=== PATIENT | male | born 1980 | race Caucasian/White ===

== ENCOUNTER 2021-05-08 18:37 | Emergency (ER) | payer SELFPAY ==
[~2021-05-08] VITALS: Ht 180.3 cm; Wt 138.1 kg
--- NOTE | 2021-05-08 19:13 | PHYS DOC ---
Past History Additional Past Medical Histor: HIATAL HERNIA Past Surgical History: Other Additional Past Surgical Histo: CYST REMOVAL FROM LOWER BACK Adult General Chief Complaint Chief Complaint: ABDOMINAL PAIN [facility] Patient is a 40 year old male who presents with epigastric abdominal pain for the last couple days that has gotten a bit worse. He has had on and off problem with the same pain and has been told that he has hiatal hernia in the past. Today he had gone to urgent care and because of nature of his symptoms he was sent to emergency department for further evaluation. Patient denies any nausea or vomiting. His main complaint is feeling pressure in the epigastric area along with burning sensation. He has no chest pain or shortness of breath or cough. He denies any fever, lower abdominal pain, back pain, dysuria, hematuria or diarrhea. He denies drinking alcohol and generally does not take any other medications. Review of Systems Review of Systems Constitutional: Denies fever or chills Eyes: Denies change in visual acuity, redness, or eye pain HENT: Denies nasal congestion or sore throat Respiratory: Denies cough or shortness of breath Cardiovascular: No additional information not addressed in HPI GI: Denies nausea, vomiting, bloody stools or diarrhea. Mainly has epigastric abdominal pain that is on and off. : Denies dysuria or hematuria Musculoskeletal: Denies back pain or joint pain Integument: Denies rash or skin lesions Neurologic: Denies headache, focal weakness or sensory changes Endocrine: Denies polyuria or polydipsia All other systems were reviewed and found to be within normal limits, except as documented in this note. Allergies Allergies Allergies Coded Allergies Type Severity Reaction Last Updated Verified Penicillins Allergy Unknown 05/08/21 Yes lithium Allergy Unknown 05/08/21 Yes Physical Exam Physical Exam Constitutional: Well developed, well nourished, no acute distress, non-toxic appearance. HENT: Normocephalic, atraumatic, bilateral external ears normal, oropharynx moist, no oral exudates, nose normal. Eyes: PERRLA, EOMI, conjunctiva normal, no discharge. Neck: Normal range of motion, no tenderness, supple. Cardiovascular:Heart rate regular rhythm, no murmur Lungs & Thorax: Bilateral breath sounds clear to auscultation Abdomen: Bowel sounds normal, soft, no masses, no pulsatile masses. Mild to moderate epigastric tenderness but no diffuse tenderness noted. Skin: Warm, dry, no erythema, no rash. Back: No tenderness, no CVA tenderness. Extremities: No tenderness, no cyanosis, no clubbing, ROM intact, no edema. Neurologic: Alert and oriented X 3, normal motor function, normal sensory function, no focal deficits noted. Psychologic: Affect normal, judgement normal, mood normal. Current Patient Data Lab Results Laboratory Tests Test 05/08/21 19:15 White Blood Count 11.0 x10^3/uL Red Blood Count 4.97 x10^6/uL Hemoglobin 15.5 g/dL Hematocrit 44.8 % Mean Corpuscular Volume 90 fL Mean Corpuscular Hemoglobin 31 pg Mean Corpuscular Hemoglobin Concent 35 g/dL Red Cell Distribution Width 12.8 % Platelet Count 295 x10^3/uL Neutrophils (%) (Auto) 55 % Lymphocytes (%) (Auto) 34 % Monocytes (%) (Auto) 9 % Eosinophils (%) (Auto) 2 % Basophils (%) (Auto) 1 % Neutrophils # (Auto) 6.0 x10^3uL Lymphocytes # (Auto) 3.7 x10^3/uL Monocytes # (Auto) 1.0 x10^3/uL Eosinophils # (Auto) 0.2 x10^3/uL Basophils # (Auto) 0.1 x10^3/uL Sodium Level 138 mmol/L Potassium Level 3.4 mmol/L Chloride Level 101 mmol/L Carbon Dioxide Level 28 mmol/L Anion Gap 9 Blood Urea Nitrogen 8 mg/dL Creatinine 1.0 mg/dL Estimated GFR (Cockcroft-Gault) 83.6 BUN/Creatinine Ratio 8 Glucose Level 178 mg/dL Calcium Level 9.3 mg/dL Total Bilirubin 1.0 mg/dL Aspartate Amino Transf (AST/SGOT) 28 U/L Alanine Aminotransferase (ALT/SGPT) 90 U/L Alkaline Phosphatase 131 U/L Total Protein 8.2 g/dL Albumin 4.3 g/dL Albumin/Globulin Ratio 1.1 Lipase 93 U/L Current Medications Medications (Trade) Dose Ordered Sig/Joseph Route PRN Reason Start Time Stop Time Status Last Admin Dose Admin Famotidine (Pepcid Vial) 20 mg 1X ONCE IVP 05/08/21 19:15 05/08/21 19:16 DC 05/08/21 19:46 Iohexol (Omnipaque 300 Mg/ml) 75 ml 1X ONCE IV 05/08/21 19:15 05/08/21 19:16 DC 05/08/21 19:32 Info (Do NOT chart on this entry -- for MONITORING) 1 each PRN DAILY PRN MC SEE COMMENTS 05/08/21 19:15 05/10/21 19:14 EKG EKG [] Radiology/Procedures Radiology/Procedures CT scan of the abdomen and pelvis with IV contrast as interpreted by radiologist showed no acute process in the abdomen or pelvis and only had diffuse hepatic steatosis was seen. Large and small bowels were unremarkable along with gallbladder and kidneys. [] Heart Score C/O Chest Pain: No Risk Factors: Risk Factors: DM, Current or recent (<one month) smoker, HTN, HLP, family history of CAD, obesity. Risk Scores: Risk Factors: DM, Current or recent (<one month) smoker, HTN, HLP, family history of CAD, obesity. Course & Med Decision Making Course & Med Decision Making Pertinent Labs and Imaging studies reviewed. (See chart for details) Patient had presented with epigastric pain. Is more burning in sensation but on and off present for a while. His laboratory studies including CBC and electrolytes were unremarkable. It is very slightly elevated liver function test but CT scan showed normal gallbladder and no other acute abnormalities were noted on the CT. He had relief after Pepcid intravenously. I have instructed him to take Prilosec 20 mg [id number] every morning and if that helps him partially or does not help him, he should follow-up with his primary care physician and see other options. He knows that if he develops any nausea or vomiting or increased abdominal pain, he is to return to emergency department. Dragon Disclaimer Dragon Disclaimer This electronic medical record was generated, in whole or in part, using a voice recognition dictation system. Departure Departure: Impression: Primary Impression: Abdominal pain Disposition: HOME / SELF CARE / HOMELESS Condition: IMPROVED Referrals: PCP,NO (PCP) You should seek a primary care physician and as we discussed you can call hospital phone number to obtain one. Patient Instructions: Abdominal Pain Additional Instructions: You were seen for abdominal pain in the epigastric area. Your laboratory studies and CT scan of the abdomen was unremarkable today. You are instructed to start taking Prilosec [id number] every morning before meal. You should further follow-up with your primary care physician in the next 2 to 3 days. If you develop any increased abdominal pain, nausea or vomiting or fever, you should come back to emergency department. PAO STREET MD May 08, 2021 19:13
[2021-05-08] MEDS ORDERED: FAMOTIDINE 20 MG/2 ML VIAL IVP ONE (19:15)
[2021-05-08] MEDS ORDERED: IOHEXOL 300 MG/ML 75 ML VIAL. IV ONE (19:15)
[2021-05-08] MEDS ORDERED: CONTRAST GIVEN. MC PRN (19:15)
[2021-05-08 19:23] VITALS: BP 106/53
[2021-05-08 19:39] LABS: BASO # 0.1 x10^3/uL (0.0-0.2); BASO % 1 % (0-3); EOS # 0.2 x10^3/uL (0.0-0.7); EOS % 2 % (0-3); HEMATOCRIT 44.8 % (39.0-53.0); HEMOGLOBIN 15.5 g/dL (13.0-17.5); LYMPH # 3.7 x10^3/uL (1.0-4.8); LYMPH % 34 % (24-48); MEAN CORPUSCULAR HEMOGLOBIN 31 pg (25-35); MEAN CORPUSCULAR HGB CONC 35 g/dL (31-37); MEAN CORPUSCULAR VOLUME 90 fL (79-100); MONO % 9 % (0-9); NEUT % 55 % (31-73); PLATELET COUNT 295 x10^3/uL (140-400); RED BLOOD COUNT 4.97 x10^6/uL (4.30-5.70); RED CELL DISTRIBUTION WIDTH 12.8 % (11.5-14.5)
[2021-05-08 19:51] LABS: CALCIUM 9.3 mg/dL (8.5-10.1); GFR 83.6; POTASSIUM 3.4 mmol/L (3.5-5.1)
[2021-05-08 19:55] LABS: ALBUMIN 4.3 g/dL (3.4-5.0); ALBUMIN/GLOBULIN RATIO 1.1 (1.0-1.7); TOTAL PROTEIN 8.2 g/dL (6.4-8.2)
--- NOTE | 2021-05-08 20:05 | RAD ---
Exam: CT of abdomen and pelvis with contrast INDICATION: Epigastric pain TECHNIQUE: Sequential axial images through the abdomen and pelvis obtained following the administrati on of 75 mL of Omni 300 IV contrast. Sagittal and coronal reformatted images were reconstructed from the axial data and reviewed. Exposure: One or more of the following in the visualized dose reduction techniques were utilized for this examination: 1. Automated exposure control 2. Adjustment of the MA and/or KV according to patient size 3. Use of iterative of reconstructive technique Comparisons: None FINDINGS: Heart size is normal. No pericardial effusion. Visualized lung bases are clear. No pleural effusion. Diffuse hepatic steatosis. Spleen, pancreas, gallbladder and adrenals are unremarkable. No perinephric inflammation or hydronephrosis. No renal or ureteral calculi are identified. Bladder is decompressed not well evaluated. Prostate is not enlarged. Large and small bowel are unremarkable. Appendix is not identified. No free intra-abdominal air or fl uid. No obstruction. Abdominal aorta has a normal course and caliber. Abdominal vasculature is patent. No enlarged intra-abdominal lymph nodes are identified. No suspicious osseous lesions or acute fractures. IMPRESSION: 1. No acute process identified in the abdomen or pelvis. 2. Diffuse hepatic steatosis. Electronically signed by: Mirtha James MD (05/08/2021 8:02 PM) [facility]
== END 2021-05-08 20:25 | disposition home or self-care (01) ==
LOC: ER 18:37
DX: R10.13 Epigastric pain (principal); Z98.890 Other specified postprocedural states
CPT/HCPCS: 36415; 74177; 80053; 83690; 85025; 96374; 99285; J3490; Q9967